=== PATIENT | female | born 1960 | race Two or more races ===

== ENCOUNTER → 2016-09-02 | Outpatient (CLI) | payer OTHER ==
--- NOTE | 2016-09-02 11:20 | HKNOTE ---
DATE OF SERVICE: 09/02/2016 INTERVAL HISTORY: The patient presents today for a followup evaluation. She is here to undergo a Monovisc injection to her left knee. She has been having worsening pain in the left knee and is now having compensatory pain in the right knee as well. She denies any fevers or chills. She does complain of pain with ambulation. She denies any significant soft tissue swelling. She presents today for a followup visit for an injection of Monovisc to her left knee. PHYSICAL EXAMINATION: On exam today, she is alert and oriented x4, in no acute distress. She is ambulating with a slight antalgic gait. Examination of the left knee demonstrates no effusion. There is no erythema or warmth. Range of motion is 0-120 degrees. Varus and valgus forces are stable. Compartments were soft. Neurovascular status intact distally. ASSESSMENT: Left knee osteoarthritis. PLAN: The patient underwent a Monovisc injection to her left knee. She tolerated the procedure well. She did have some mild pain with the injection. The patient was advised to apply ice the area and take Tylenol as needed for pain. She is able to resume all normal activities tomorrow. If she has any increasing pain, redness, swelling or fever she will call the office. Otherwise , we will see her back as needed. PROCEDURE NOTE: The patient and informed consent was obtained prior to the start procedure. The area was prepped and draped in sterile fashion using Betadine. Ethyl chloride was used to anesthetize the superolateral aspect of the left knee and 4 mL of Monovisc were injected. The patient tolerated the procedure well. Sterile dressing was applied. All questions and concerns were addressed at the time of the procedure. Dictated By: PHILLIP FRAZIER/NIKA Conf#: [id number] DID#: [id number]
== END | disposition home or self-care (01) ==
LOC: HKI 10:24
PROVIDERS: ATTEND Orthopaedic Surgery
DX: M17.12 Unilateral primary osteoarthritis, left knee (principal)
CPT/HCPCS: 20610; J7327

== ENCOUNTER → 2016-10-31 | Outpatient (CLI) | payer OTHER ==
--- NOTE | 2016-11-01 12:04 | RADRPT ---
PROCEDURE: Right knee radiographs. CLINICAL INDICATION: Right knee pain. TECHNIQUE: Four views. Weight bearing. Frontal, lateral, oblique, and patellar view. COMPARISON: No prior studies are available for comparison. FINDINGS: There is no fracture or dislocation. The soft tissues are normal. There are degenerative changes with osteophytes arising from all 3 joint compartment margins. There is medial joint compartment narrowing. There is no lytic or blastic lesion. There is no radiopaque foreign body. IMPRESSION: 1. Moderate degenerative changes of the right knee. 2. No acute abnormality. RPTAT: QQ .Hugo Perez MD, MD Date Time Electronically viewed and signed by .Hugo Perez MD, MD on 11/01/2016 12:04 .R/
== END | disposition home or self-care (01) ==
LOC: HKI 13:42
PROVIDERS: ATTEND Orthopaedic Surgery
DX: M25.561 Pain in right knee (principal); M17.0 Bilateral primary osteoarthritis of knee
CPT/HCPCS: 73564; Z7500; G0463